=== PATIENT | male | born 1995 | race Caucasian/White ===

== ENCOUNTER → 2017-07-31 | Outpatient (CLI) | payer BC ==
[~2017-07-31] MED LIST: AMPH15CA7 PO; AMPH20TA2 PO; MULT-506 PO
== END | disposition home or self-care (01) ==
LOC: C.LAB1850 15:38
PROVIDERS: ATTEND Physician Assistant
DX: Z72.51 High risk heterosexual behavior (principal)

== ENCOUNTER → 2017-10-28 | Outpatient (CLI) | payer BC ==
--- NOTE | 2017-10-28 10:23 | DIAGNOSTIC IMAGING REPORT ---
ORBITS BILATERAL MIN 4 VIEWS CLINICAL HISTORY: Facial trauma. COMPARISON STUDY: No previous studies for comparison. FINDINGS: No facial fracture is identified by radiography. No maxillary sinus air-fluid levels are noted. IMPRESSION: No facial fracture identified. However, is persistent clinical suspicion for acute fracture, a CT is recommended. Electronically signed by: Natanael Guzman M.D. 10/28/2017 10:21 AM Dictated Date/Time: 10/28/2017 10:20 AM
== END | disposition home or self-care (01) ==
LOC: C.RAD1850 10:01
PROVIDERS: ATTEND Internal Medicine
DX: S09.93XA Unspecified injury of face, initial encounter (principal); X58.XXXA Exposure to other specified factors, initial encounter